=== PATIENT | female | born 1955 | race Caucasian/White ===

== ENCOUNTER 2017-10-08 07:44 | Emergency (ER) | payer OTHER ==
[~2017-10-08] VITALS: Ht 167.6 cm; Wt 79.4 kg
[2017-10-08] MEDS ORDERED: ATENOLOL-CHLOR1 EACH PO (08:07)
[2017-10-08] MEDS ORDERED: LIPITOR10 MG PO (08:09)
[2017-10-08] MEDS ORDERED: GLUCOPHAGE500 MG PO (08:09)
[2017-10-08] MEDS ORDERED: FENOFIBRATE160 MG PO (08:10)
[2017-10-08] MEDS ORDERED: NORCO 5-325 TA1 EACH PO (08:36)
[2017-10-08 09:01] VITALS: BP 151/84
== END 2017-10-08 09:02 | disposition home or self-care (01) ==
LOC: M.ERS 07:44
DX: M25.551 Pain in right hip (principal); I10 Essential (primary) hypertension; E11.9 Type 2 diabetes mellitus without complications; Z86.79 Personal history of other diseases of the circulatory system; Z88.1 Allergy status to other antibiotic agents; Z88.8 Allergy status to other drugs, medicaments and biological substances; W01.0XXA Fall on same level from slipping, tripping and stumbling without subsequent striking against object, initial encounter; Y93.89 Activity, other specified; Y92.89 Other specified places as the place of occurrence of the external cause; Y99.8 Other external cause status